=== PATIENT | female | born 1970 | race African-American/Black ===

== ENCOUNTER 2018-02-19 13:08 | Emergency (ER) | payer OTHER ==
[2018-02-19 13:37] LABS: Hematocrit 36.9 % (30.3-42.9); Hemoglobin 12.1 gm/dl (10.1-14.3); Mean Corpuscular HGB Conc 33 % (30-34); Mean Corpuscular Hemoglobin 29 pg (28-32); Mean Corpuscular Volume 89 fl (79-97); Platelet Count 343 K/mm3 (140-440); Red Blood Count 4.18 M/mm3 (3.65-5.03); Red Cell Distribution Width 13.1 % (13.2-15.2)
[2018-02-19] MEDS ORDERED: NORVASC PO ONE (17:17)
--- NOTE | 2018-02-19 17:19 | Emergency Department Report ---
ED General Adult HPI - General Chief complaint: High BP Stated complaint: HIGH BLOOD PRESSURE Time Seen by Provider: 02/19/18 17:07 Source: patient Mode of arrival: Ambulatory Limitations: No Limitations - History of Present Illness Initial comments: Patient presents to the emergency department for high blood pressure. The patient's blood pressure was 197/117 on ED arrival. Patient was at her primary care physician's office and because of elevated blood pressure she was told to come to the emergency department. Patient denies any chest pain, headache, numbness, weakness. She says she was recently changed from valsartan due to the recall to losartan and was told to increase her dosage from 50 mg a day to 100 mg a day which she has not been able to get yet. - Related Data Home Medications Medication Instructions Recorded Confirmed Last Taken Furosemide [Lasix TAB] 40 mg PO QDAY 02/27/16 02/27/16 Unknown Perindopril Erbumine [Aceon] 5 mg PO QDAY 02/27/16 02/27/16 Unknown metFORMIN [Glucophage] 425 mg PO QDAY 02/27/16 02/27/16 Unknown Allergies Allergy/AdvReac Type Severity Reaction Status Date / Time No Known Allergies Allergy Verified 02/27/16 06:25 ED Review of Systems ROS: Stated complaint: HIGH BLOOD PRESSURE Other details as noted in HPI Comment: All other systems reviewed and negative Constitutional: denies: chills, fever Eyes: denies: eye pain, eye discharge, vision change ENT: denies: ear pain, throat pain Respiratory: denies: cough, shortness of breath, wheezing Cardiovascular: denies: chest pain, palpitations Endocrine: no symptoms reported Gastrointestinal: denies: abdominal pain, nausea, diarrhea Genitourinary: denies: urgency, dysuria, discharge Musculoskeletal: denies: back pain, joint swelling, arthralgia Skin: denies: rash, lesions Neurological: denies: headache, weakness, paresthesias Psychiatric: denies: anxiety, depression Hematological/Lymphatic: denies: easy bleeding, easy bruising ED Past Medical Hx - Past Medical History Hx Hypertension: Yes Hx Diabetes: Yes - Surgical History Additional Surgical History: CSECTION X4 - Social History Smoking Status: Never Smoker Substance Use Type: None - Medications Home Medications: Home Medications Medication Instructions Recorded Confirmed Last Taken Type Furosemide [Lasix TAB] 40 mg PO QDAY 02/27/16 02/27/16 Unknown History Perindopril Erbumine [Aceon] 5 mg PO QDAY 02/27/16 02/27/16 Unknown History metFORMIN [Glucophage] 425 mg PO QDAY 02/27/16 02/27/16 Unknown History ED Physical Exam - General Limitations: No Limitations General appearance: alert, in no apparent distress - Head Head exam: Present: atraumatic, normocephalic - Eye Eye exam: Present: normal appearance - ENT ENT exam: Present: mucous membranes moist - Neck Neck exam: Present: normal inspection - Respiratory Respiratory exam: Present: normal lung sounds bilaterally. Absent: respiratory distress - Cardiovascular Cardiovascular Exam: Present: regular rate, normal rhythm. Absent: systolic murmur, diastolic murmur, rubs, gallop - GI/Abdominal GI/Abdominal exam: Present: soft, normal bowel sounds. Absent: distended, tenderness - Extremities Exam Extremities exam: Present: normal inspection - Back Exam Back exam: Present: normal inspection - Neurological Exam Neurological exam: Present: alert, oriented X3, CN II-XII intact. Absent: motor sensory deficit - Psychiatric Psychiatric exam: Present: normal affect, normal mood - Skin Skin exam: Present: warm, dry, intact, normal color. Absent: rash ED Course Vital Signs 02/19/18 13:12 Temperature 98.4 F Pulse Rate 87 Respiratory 18 Rate Blood Pressure 197/117 O2 Sat by Pulse 98 Oximetry ED Medical Decision Making - Lab Data Result diagrams: 02/19/18 13:24 02/19/18 13:24 - Medical Decision Making Discussed hypertension management with the patient The patient is asymptomatic hypertension with controlled as outpatient Patient encouraged to her losartan filled Critical care attestation.: If time is entered above; I have spent that time in minutes in the direct care of this critically ill patient, excluding procedure time. ED Disposition Clinical Impression: Hypertension Disposition: DC-01 TO HOME OR SELFCARE Is pt being admited?: No Does the pt Need Aspirin: No Condition: Stable Instructions: Hypertension (ED) Additional Instructions: return if worse Referrals: OSMIN LANGLEY [Primary Care Provider] - 3-5 Days Time of Disposition: 17:19
[2018-02-19 17:32] VITALS: BP 212/101
== END 2018-02-19 17:37 | disposition home or self-care (01) ==
LOC: ED 13:08
DX: I10 Essential (primary) hypertension (principal); E11.9 Type 2 diabetes mellitus without complications
CPT/HCPCS: 36415; 80048; 85027; 99283

== ENCOUNTER 2018-10-18 10:28 | Outpatient (CLI) | payer OTHER ==
[2018-10-18 11:18] LABS: Hematocrit 36.8 % (30.3-42.9); Hemoglobin 12.3 gm/dl (10.1-14.3); Mean Corpuscular HGB Conc 33 % (30-34); Mean Corpuscular Volume 90 fl (79-97); Platelet Count 369 K/mm3 (140-440); Red Blood Count 4.11 M/mm3 (3.65-5.03); Red Cell Distribution Width 13.7 % (13.2-15.2)
[2018-10-18 11:29] LABS: Albumin 3.4 g/dL (3.9-5); Calcium 8.8 mg/dL (8.4-10.2); Chol/HDL Ratio 4.36 %
== END 2018-10-18 10:29 | disposition home or self-care (01) ==
LOC: LAB 10:28
PROVIDERS: ATTEND Internal Medicine
DX: Z00.01 Encounter for general adult medical examination with abnormal findings (principal); E11.9 Type 2 diabetes mellitus without complications; I10 Essential (primary) hypertension; E78.2 Mixed hyperlipidemia
CPT/HCPCS: 36415; 80053; 80061; 82306; 82607; 83036; 84443; 85027

== ENCOUNTER 2019-03-25 10:38 | Outpatient (CLI) | payer OTHER ==
--- NOTE | 2019-03-26 10:25 | Mammography Report ---
DIGITAL SCREENING MAMMOGRAM WITH CAD, 03/25/2019 INDICATION: Routine screening mammography. TECHNIQUE: Digital bilateral 2D mammography was obtained in the craniocaudal and mediolateral obliq ue projections. This examination was interpreted with the benefit of Computer-Aided Detection analysi s. COMPARISON: None available. FINDINGS: Breast Density: The breasts are heterogeneously dense, which may obscure small masses. There is no evidence of dominant mass, suspicious calcifications or architectural distortion in eithe r breast. IMPRESSION: No mammographic evidence of malignancy. Follow up recommendation: Routine yearly BI-RADS Category 1: Negative. A "normal" or negative report should not discourage follow up or biopsy of a clinically significant f inding. A written summary of these findings will be mailed to the patient. The patient will be entered into a mammography reporting system which will generate a reminder letter for the patient's next appointmen t at the appropriate interval. The [employer] recommends yearly mammograms starting at age 40 and continuing as l carlos as a woman is in good health. Breast MRI is recommended for women with an approximate 20-25% or greater lifetime risk of breast cancer, including women with a strong family history of breast or ova nile cancer or who have been treated for Hodgkin's disease. Signer Name: Hilario Nuñez MD Signed: 03/26/2019 10:21 AM Workstation Name: [id number]
== END 2019-03-25 10:39 | disposition home or self-care (01) ==
LOC: MAMMO 10:38
PROVIDERS: ATTEND Internal Medicine
DX: Z12.31 Encounter for screening mammogram for malignant neoplasm of breast (principal); I10 Essential (primary) hypertension
CPT/HCPCS: 77067

== ENCOUNTER 2021-06-25 03:06 | Observation (INO) | payer OTHER ==
[2021-06-25] MEDS ORDERED: ASPIRIN 325 MG TAB PO ONE (04:12)
--- NOTE | 2021-06-25 04:13 | Emergency Department Report ---
ED Chest Pain HPI - General Chief Complaint: Chest Pain Stated Complaint: HIGH BP PUI?: No Time Seen by Provider: 06/25/21 04:09 Source: patient Mode of arrival: Ambulatory Limitations: No Limitations - History of Present Illness Initial Comments: Patient is a 51-year-old female that presents emergency room with complaints of chest pain. Patient states chest pain is a 8 out of 10. Patient states is in her left chest. Patient states is nonradiating. Patient denies shortness of breath. Patient states it started 1 day ago. Patient states chest pain is worsening. Patient also complains of elevated blood pressure. Patient states her blood pressure is 220/120 at home prior to leaving the house. Patient states she had a test at 130 and just before leaving she took Norvasc and losartan. Patient states that her blood pressure has never been this high. Patient states is normally controlled. Patient states her heart rate is also 125. Patient states she has a past medical history of hyperlipidemia, diabetes and hypertension. Patient denies recent travel. Patient denies recent international travel. Patient denies exposure to the novel coronavirus. Patient denies sick contacts. Patient denies fever and chills. Patient denies cough. Patient denies diarrhea. Patient denies coming in contact with anybody with symptoms of the novel coronavirus. MD Complaint: chest pain -: Sudden Onset: during rest Pain Location: left chest Pain Radiation: none Severity: severe Severity scale (0 -10): 8 Quality: sharp Consistency: constant Improves With: rest Worsens With: exertion re: denies: nausea, vomting, diaphoresis, dyspnea, sense of impending doom Other Symptoms: denies: cough, fever, syncope, rash, acid taste in mouth, leg swelling, palpitations, burping Treatments Prior to Arrival: aspirin Aspirin use within the Past 7 Days: (1) Yes - Related Data On Oral Contraceptives: No Home Medications Medication Instructions Recorded Confirmed Last Taken Furosemide [Lasix TAB] 40 mg PO QDAY 02/27/16 02/27/16 Unknown Perindopril Erbumine [Aceon] 5 mg PO QDAY 02/27/16 02/27/16 Unknown metFORMIN [Glucophage] 425 mg PO QDAY 02/27/16 02/27/16 Unknown Allergies Allergy/AdvReac Type Severity Reaction Status Date / Time No Known Allergies Allergy Verified 02/27/16 06:25 Heart Score - HEART Score History: Moderately suspicious EKG: Non-specific Age: 45-65 Risk factors: > 3 risk factors or hx of atherosclerotic disease Troponin: < normal limit HEART Score: 5 - EKG Read Time Time EKG Completed: 00:00 EKG Read Time: 00:00 ED Review of Systems ROS: Stated complaint: HIGH BP Other details as noted in HPI Constitutional: denies: chills, fever Eyes: denies: eye pain, eye discharge, vision change ENT: denies: ear pain, throat pain Respiratory: denies: cough, shortness of breath, wheezing Cardiovascular: as per HPI, chest pain. denies: palpitations Endocrine: no symptoms reported Gastrointestinal: denies: abdominal pain, nausea, diarrhea Genitourinary: denies: urgency, dysuria, discharge Musculoskeletal: denies: back pain, joint swelling, arthralgia Skin: denies: rash, lesions Neurological: denies: headache, weakness, paresthesias Psychiatric: denies: anxiety, depression Hematological/Lymphatic: denies: easy bleeding, easy bruising ED Past Medical Hx - Past Medical History Previous Medical History?: Yes Hx Hypertension: Yes Hx Diabetes: Yes Additional medical history: Hyperlipidemia - Surgical History Past Surgical History?: Yes Additional Surgical History: CSECTION X4 - Family History Family history: no significant - Social History Smoking Status: Never Smoker Substance Use Type: None - Medications Home Medications: Home Medications Medication Instructions Recorded Confirmed Last Taken Type Furosemide [Lasix TAB] 40 mg PO QDAY 02/27/16 02/27/16 Unknown History Perindopril Erbumine [Aceon] 5 mg PO QDAY 02/27/16 02/27/16 Unknown History metFORMIN [Glucophage] 425 mg PO QDAY 02/27/16 02/27/16 Unknown History ED Physical Exam - General Limitations: No Limitations General appearance: alert, in no apparent distress - Head Head exam: Present: atraumatic, normocephalic - Eye Eye exam: Present: normal appearance - ENT ENT exam: Present: mucous membranes moist - Neck Neck exam: Present: normal inspection - Respiratory Respiratory exam: Present: normal lung sounds bilaterally. Absent: respiratory distress - Cardiovascular Cardiovascular Exam: Present: regular rate, normal rhythm. Absent: systolic murmur, diastolic murmur, rubs, gallop - GI/Abdominal GI/Abdominal exam: Present: soft, normal bowel sounds - Extremities Exam Extremities exam: Present: normal inspection - Back Exam Back exam: Present: normal inspection - Neurological Exam Neurological exam: Present: alert, oriented X3 - Psychiatric Psychiatric exam: Present: normal affect, normal mood - Skin Skin exam: Present: warm, dry, intact, normal color. Absent: rash ED Course Vital Signs 06/25/21 06/25/21 06/25/21 03:11 03:12 03:50 Temperature 98.0 F Pulse Rate 121 H 113 H Respiratory 22 18 12 Rate Blood Pressure 222/114 O2 Sat by Pulse 98 99 100 Oximetry 06/25/21 06/25/21 06/25/21 04:00 04:22 04:30 Temperature Pulse Rate 118 H 109 H 109 H Respiratory 14 13 15 Rate Blood Pressure 154/87 154/87 160/87 O2 Sat by Pulse 100 100 100 Oximetry 06/25/21 06/25/21 05:00 05:30 Temperature Pulse Rate 103 H 99 H Respiratory 16 17 Rate Blood Pressure 163/90 139/83 O2 Sat by Pulse 100 96 Oximetry - Reevaluation(s) Reevaluation #1: I discussed all results with patient. I discussed plan of care with patient. Patient agrees with plan of care and admission. Patient to be admitted to the hospitalist service. 06/25/21 05:46 - Consultations Consultation #1: Hospitalist consulted for admission. Hospitalist to admit patient. 06/25/21 05:46 MELO score - Melo Score Age > 65: (0) No Aspirin use within the Past 7 Days: (0) No 3 or more CAD Risk Factors: (1) Yes 2 or more Angina events in past 24 hrs: (1) Yes Known CAD with more than 50% Stenosis: (0) No Elevated Cardiac Markers: (0) No ST Deviation Greater than 0.5mm: (0) No MELO Score: 2 ED Medical Decision Making - Lab Data Result diagrams: 06/25/21 04:16 06/25/21 04:16 - EKG Data -: EKG Interpreted by Me EKG shows normal: sinus rhythm, axis, intervals, QRS complexes, ST-T waves Rate: tachycardia - Radiology Data Radiology results: report reviewed, image reviewed interpreted by me: Chest x-ray: No pneumonia, no pneumothorax, no foreign body, no osseous findings, no acute findings XR chest 1V ap INDICATION / CLINICAL INFORMATION: Chest Pain. COMPARISON: 02/27/2016 FINDINGS: SUPPORT DEVICES: None. HEART /PULMONARY VASCULATURE: No significant abnormality. LUNGS / PLEURA: No significant pulmonary or pleural abnormality. No pneumothorax. ADDITIONAL FINDINGS: No significant additional findings. IMPRESSION: 1. No acute findings. - Medical Decision Making Patient is a 51-year-old female who presents emergency room with complaints of chest pain and elevated blood pressure. Patient's blood pressure was consistent with hypertensive urgency. Patient took her blood pressure medications just prior to arrival. Patient blood pressure came down after she self treated. Patient had chest pain x1 day. Patient has a past medical history of hypertension, hyperlipidemia, diabetes. Patient has an elevated heart score and is high risk. Patient had labs done which were essentially unremarkable. Patient troponin was negative. Patient had EKG which was negative for ST changes or acute findings. Patient had a chest x-ray which was negative for acute findings. Due to the patient's risk level, the patient will be admitted to the hospital service for further evaluation treatment and risk stratification and a inpatient rule out of ACS. Critical care time documented due to the multiple reassessments, prolonged time at the bedside, interpretation of diagnostics and labs. - Differential Diagnosis Chest pain, ACS, hypertensive emergency Critical Care Time: Yes Critical care time in (mins) excluding proc time.: 35 Critical care attestation.: If time is entered above; I have spent that time in minutes in the direct care of this critically ill patient, excluding procedure time. Critical Care Time: 35 minutes ED Disposition Clinical Impression: Hypertensive emergency Chest pain Qualifiers: Chest pain type: unspecified Qualified Code(s): R07.9 - Chest pain, unspecified Disposition: ADMITTED INPATIENT Is pt being admited?: Yes Does the pt Need Aspirin: No Condition: Stable Time of Disposition: 05:47
--- NOTE | 2021-06-25 04:52 | XRay Report ---
XR chest 1V ap INDICATION / CLINICAL INFORMATION: Chest Pain. COMPARISON: 02/27/2016 FINDINGS: SUPPORT DEVICES: None. HEART /PULMONARY VASCULATURE: No significant abnormality. LUNGS / PLEURA: No significant pulmonary or pleural abnormality. No pneumothorax. ADDITIONAL FINDINGS: No significant additional findings. IMPRESSION: 1. No acute findings. Signer Name: Geoffrey Zavala MD Signed: 06/25/2021 4:47 AM Workstation Name: [id number]
[2021-06-25 05:07] LABS: Basophils % (Auto) 0.3 % (0.0-1.8); Eosinophils # (Auto) 0.3 K/mm3 (0.0-0.4); Eosinophils % (Auto) 2.4 % (0.0-4.3); Hematocrit 34.9 % (30.3-42.9); Hemoglobin 10.9 gm/dl (10.1-14.3); Lymphocytes # (Auto) 1.4 K/mm3 (1.2-5.4); Lymphocytes % (Auto) 10.9 % (13.4-35.0); Mean Corpuscular HGB Conc 31 % (30-34); Mean Corpuscular Volume 89 fl (79-97); Monocytes # (Auto) 0.9 K/mm3 (0.0-0.8); Monocytes % (Auto) 7.6 % (0.0-7.3); Platelet Count 347 K/mm3 (140-440); Red Blood Count 3.94 M/mm3 (3.65-5.03); Red Cell Distribution Width 13.4 % (13.2-15.2)
[2021-06-25 05:17] LABS: INR 0.78 (0.87-1.13)
[2021-06-25 05:18] LABS: Partial Thromboplastin Time 21.2 Sec. (24.2-36.6)
[2021-06-25 05:27] LABS: Alanine Aminotransferase 14 units/L (7-56); Albumin 3.4 g/dL (3.9-5); BUN/Creatinine Ratio 21; Blood Urea Nitrogen 27 mg/dL (7-17); Calcium 8.6 mg/dL (8.4-10.2); Hemolysis Index 4
[2021-06-25] MEDS ORDERED: ACETAMINOPHEN 325 MG TAB PO PRN (08:17)
[2021-06-25] MEDS ORDERED: ONDANSETRON 4 MG/2 ML INJ IV PRN (08:17)
--- NOTE | 2021-06-25 08:17 | History and Physical Report ---
History of Present Illness Date of examination: 06/25/21 Date of admission: 06/25/21 05:48 Chief complaint: Chest pain History of present illness: 51-year-old female with past medical history of hyperlipidemia, diabetes and hypertension who presents to the emergency department with complaints of left- sided chest pain that is nonradiating and no associated shortness of breath. The patient reports the pain began approximately 2 days ago. Patient also complains of elevated blood pressure with 220/120 at home prior to leaving the house. Patient denies any nausea vomiting. No diaphoresis no cough or cold- like symptoms. No fever chills. Past History Past Medical History: diabetes, hypertension, hyperlipidemia Past Surgical History: No surgical history Social history: no significant social history Family history: no significant family history Medications and Allergies Allergies Allergy/AdvReac Type Severity Reaction Status Date / Time No Known Allergies Allergy Verified 02/27/16 06:25 Home Medications Medication Instructions Recorded Confirmed Last Taken Type Furosemide [Lasix TAB] 40 mg PO QDAY 02/27/16 02/27/16 Unknown History Perindopril Erbumine [Aceon] 5 mg PO QDAY 02/27/16 02/27/16 Unknown History metFORMIN [Glucophage] 425 mg PO QDAY 02/27/16 02/27/16 Unknown History Review of Systems All systems: negative Exam - Constitutional Vitals: Temp Pulse Resp BP Pulse Ox 98.2 F 93 H 19 142/76 97 06/25/21 06:38 06/25/21 07:00 06/25/21 07:00 06/25/21 07:00 06/25/21 07:00 General appearance: Present: no acute distress, well-nourished - EENT Eyes: Present: PERRL ENT: hearing intact, clear oral mucosa - Neck Neck: Present: supple, normal ROM - Respiratory Respiratory effort: normal Respiratory: bilateral: CTA - Cardiovascular Heart Sounds: Present: S1 & S2. Absent: rub, click - Extremities Extremities: pulses symmetrical, No edema Peripheral Pulses: within normal limits - Abdominal General gastrointestinal: Present: soft, non-tender, non-distended, normal bowel sounds Female genitourinary: Present: normal - Integumentary Integumentary: Present: clear, warm, dry - Musculoskeletal Musculoskeletal: gait normal, strength equal bilaterally - Psychiatric Psychiatric: appropriate mood/affect, intact judgment & insight - Neurologic Neurologic: CNII-XII intact, moves all extremities HEART Score - HEART Score EKG: Non-specific Age: 45-65 Risk factors: > 3 risk factors or hx of atherosclerotic disease Troponin: Troponin T < 0.010 ng/mL (0.00-0.029) 06/25/21 04:16 Troponin: < normal limit Results - Labs CBC & Chem 7: 06/25/21 04:16 06/25/21 04:16 Labs: Laboratory Last Values WBC 12.4 K/mm3 (4.5-11.0) H 06/25/21 04:16 RBC 3.94 M/mm3 (3.65-5.03) 06/25/21 04:16 Hgb 10.9 gm/dl (10.1-14.3) 06/25/21 04:16 Hct 34.9 % (30.3-42.9) 06/25/21 04:16 MCV 89 fl (79-97) 06/25/21 04:16 MCH 28 pg (28-32) 06/25/21 04:16 MCHC 31 % (30-34) 06/25/21 04:16 RDW 13.4 % (13.2-15.2) 06/25/21 04:16 Plt Count 347 K/mm3 (140-440) 06/25/21 04:16 Lymph % (Auto) 10.9 % (13.4-35.0) L 06/25/21 04:16 [place] % (Auto) 7.6 % (0.0-7.3) H 06/25/21 04:16 Eos % (Auto) 2.4 % (0.0-4.3) 06/25/21 04:16 Baso % (Auto) 0.3 % (0.0-1.8) 06/25/21 04:16 Lymph # (Auto) 1.4 K/mm3 (1.2-5.4) 06/25/21 04:16 [place] # (Auto) 0.9 K/mm3 (0.0-0.8) H 06/25/21 04:16 Eos # (Auto) 0.3 K/mm3 (0.0-0.4) 06/25/21 04:16 Baso # (Auto) 0.0 K/mm3 (0.0-0.1) 06/25/21 04:16 Seg Neutrophils % 78.8 % (40.0-70.0) H 06/25/21 04:16 Seg Neutrophils # 9.8 K/mm3 (1.8-7.7) H 06/25/21 04:16 PT 11.8 Sec. (12.2-14.9) L 06/25/21 04:16 INR 0.78 (0.87-1.13) L 06/25/21 04:16 APTT 21.2 Sec. (24.2-36.6) L 06/25/21 04:16 Sodium 134 mmol/L (137-145) L 06/25/21 04:16 Potassium 3.6 mmol/L (3.6-5.0) 06/25/21 04:16 Chloride 98.5 mmol/L (98-107) 06/25/21 04:16 Carbon Dioxide 22 mmol/L (22-30) 06/25/21 04:16 Anion Gap 17 mmol/L 06/25/21 04:16 BUN 27 mg/dL (7-17) H 06/25/21 04:16 Creatinine 1.3 mg/dL (0.6-1.2) H 06/25/21 04:16 Estimated GFR 43 ml/min 06/25/21 04:16 BUN/Creatinine Ratio 21 % 06/25/21 04:16 Glucose 95 mg/dL (65-100) 06/25/21 04:16 Calcium 8.6 mg/dL (8.4-10.2) 06/25/21 04:16 Total Bilirubin 0.20 mg/dL (0.1-1.2) 06/25/21 04:16 AST 17 units/L (5-40) 06/25/21 04:16 ALT 14 units/L (7-56) 06/25/21 04:16 Alkaline Phosphatase 62 units/L (35-129) 06/25/21 04:16 Troponin T < 0.010 ng/mL (0.00-0.029) 06/25/21 04:16 Total Protein 7.1 g/dL (6.3-8.2) 06/25/21 04:16 Albumin 3.4 g/dL (3.9-5) L 06/25/21 04:16 Albumin/Globulin Ratio 0.9 % 06/25/21 04:16 Assessment and Plan Assessment and plan: Chest pain. Accelerated hypertension. Hyperlipidemia Diabetes mellitus type 2 Acute kidney injury secondary to vasomotor nephropathy. 06/25/2021. Patient will be admitted to the chest pain pathway. We will follow-up serial EKGs and troponin levels. Initial EKG shows no ST-T wave changes and initial troponin negative. Consult cardiology for further evaluation. Check echocardiogram. Continue home medications for hypertension. Hold Glucophage and start sliding scale insulin and Accu-Cheks before every meal nightly. Patient has some mild renal insufficiency with likely acute kidney injury secondary to vasomotor nephropathy/dehydration. Normal saline IV fluid and follow-up BMP in the morning
[2021-06-25] MEDS ORDERED: MORPHINE 4 MG/1 ML INJ IV PRN (08:18)
[2021-06-25] MEDS ORDERED: DEXTROSE 50% IN WATER (25GM) 50 ML SYRINGE IV PRN (08:18)
[2021-06-25 10:33] LABS: Basophils % (Auto) 0.3 % (0.0-1.8); Eosinophils # (Auto) 0.1 K/mm3 (0.0-0.4); Eosinophils % (Auto) 1.2 % (0.0-4.3); Hematocrit 31.1 % (30.3-42.9); Lymphocytes # (Auto) 1.6 K/mm3 (1.2-5.4); Lymphocytes % (Auto) 16.1 % (13.4-35.0); Mean Corpuscular HGB Conc 32 % (30-34); Mean Corpuscular Volume 88 fl (79-97); Monocytes # (Auto) 0.7 K/mm3 (0.0-0.8); Monocytes % (Auto) 7.6 % (0.0-7.3); Platelet Count 330 K/mm3 (140-440); Red Blood Count 3.52 M/mm3 (3.65-5.03); Red Cell Distribution Width 13.1 % (13.2-15.2)
[2021-06-25 10:57] LABS: Calcium 8.2 mg/dL (8.4-10.2)
[2021-06-25] MEDS: INSULIN REGULAR, HUMAN 100 UNITS/1 ML SUB-Q SCH ×3 (13:44→21:59)
[2021-06-25] MEDS: HYDROcodone/ACETAMINOPHEN 5-325 MG TAB PO PRN ×2 (13:45→18:33)
[2021-06-25] MEDS: HEPARIN 5,000 UNIT/1 ML VIAL SUB-Q SCH ×2 (13:45→21:59)
[2021-06-25] MEDS: SODIUM CHLORIDE 0.9% 1000 ML 1,000 ML IV SCH ×2 (13:45→21:50)
--- NOTE | 2021-06-25 16:02 | Consultation ---
History of Present Illness Consult date: 06/25/21 Requesting physician: EDEN DANIEL Consult reason: chest pain History of present illness: Pt is a 51-year-old female with past medical history of HTN, HLD, and DM2, who presented with complaints of left-sided chest pain x 1 day prior to arrival. Pt describes pain as sharp and constant. Worse with exertion. No relieving factors. Pt denies any additional associated sx. Of note, BP markedly elevated. SBP > 200mmHg at home per pt report. She states her BP is typically well-controlled. Pt has been seen by our group during a previous hospitalization in 2019. She notably had a normal echo and negative stress test at that time. Trop neg x 2 thus far this admission. ECG reveals no acute ischemic changes. Echo 03/2019: EF 55-60%, impaired relaxation, no significant valvular abnormalities. Lexiscan stress MPI 03/2019: no evidence of ischemia, EF 63%. Past History Past Medical History: diabetes, hypertension, hyperlipidemia Past Surgical History: No surgical history Social history: denies: smoking, alcohol abuse Family history: hypertension. denies: CAD Medications and Allergies Allergies Allergy/AdvReac Type Severity Reaction Status Date / Time No Known Allergies Allergy Verified 02/27/16 06:25 Home Medications Medication Instructions Recorded Confirmed Last Taken Type Furosemide [Lasix TAB] 40 mg PO QDAY 02/27/16 02/27/16 Unknown History Perindopril Erbumine [Aceon] 5 mg PO QDAY 02/27/16 02/27/16 Unknown History metFORMIN [Glucophage] 425 mg PO QDAY 02/27/16 02/27/16 Unknown History Active Meds: Active Medications Acetaminophen (Acetaminophen 325 Mg Tab) 650 mg PO Q4H PRN PRN Reason: Pain MILD(1-3)/Fever >100.5/HANLEY Hydrocodone Bitart/Acetaminophen (Hydrocodone/Acetaminophen 5-325 Mg Tab) 2 each PO Q6H PRN PRN Reason: Pain, Moderate (4-6) Last Admin: 06/25/21 13:45 Dose: 2 each Documented by: Dextrose (Dextrose 50% In Water (25gm) 50 Ml Syringe) 50 ml IV Q30MIN PRN; Protocol PRN Reason: Hypoglycemia Heparin Sodium (Porcine) (Heparin 5,000 Unit/1 Ml Vial) 5,000 unit SUB-Q Q8HR KING Last Admin: 06/25/21 13:45 Dose: 5,000 unit Documented by: Sodium Chloride (Nacl 0.9% 1000 Ml) 1,000 mls @ 75 mls/hr IV DIRECT [facility] Last Admin: 06/25/21 13:45 Dose: 75 mls/hr Documented by: Insulin Human Regular (Insulin Regular, Human 100 Units/1 Ml) 0 units SUB-Q Q6H [facility]; Protocol Last Admin: 06/25/21 13:44 Dose: Not Given Documented by: Morphine Sulfate (Morphine 4 Mg/1 Ml Inj) 2 mg IV Q4H PRN PRN Reason: Pain , Severe (7-10) Ondansetron HCl (Ondansetron 4 Mg/2 Ml Inj) 4 mg IV Q8H PRN PRN Reason: Nausea And Vomiting Sodium Chloride (Sodium Chloride 0.9% 10 Ml Flush Syringe) 10 ml IV BID [facility] Last Admin: 06/25/21 13:44 Dose: Not Given Documented by: Sodium Chloride (Sodium Chloride 0.9% 10 Ml Flush Syringe) 10 ml IV PRN PRN PRN Reason: LINE FLUSH Tramadol HCl (Tramadol 50 Mg Tab) 50 mg PO Q6H PRN PRN Reason: Pain, Moderate (4-6) Review of Systems Constitutional: no fever, no chills Ears, nose, mouth and throat: no nasal congestion, no sore throat Cardiovascular: chest pain, high blood pressure, no orthopnea, no palpitations, no rapid/irregular heart beat, no edema, no syncope, no lightheadedness, no shortness of breath Respiratory: no cough, no shortness of breath Gastrointestinal: no abdominal pain, no nausea, no vomiting Genitourinary Female: no dysuria Musculoskeletal: no myalgias Integumentary: no rash, no wounds Neurological: no numbness, no tingling, no seizures, no syncope Endocrine: no cold intolerance, no heat intolerance Hematologic/Lymphatic: no easy bruising, no easy bleeding Allergic/Immunologic: no anaphylaxis Physical Examination Last Vital Signs Temp 97.9 F 06/25/21 15:32 Pulse 114 H 06/25/21 15:32 Resp 18 06/25/21 15:32 BP 119/60 06/25/21 15:32 Pulse Ox 95 06/25/21 15:32 General appearance: no acute distress HEENT: Positive: EOMI, Normocephaly Neck: Positive: neck supple, trachea midline Cardiac: Positive: Reg Rate and Rhythm, S1/S2 Lungs: Positive: clear to auscultation Neuro: Positive: Grossly Intact Abdomen: Positive: Soft. Negative: Tender Skin: Negative: Rash Musculoskeletal: No Pain Extremities: Present: lower extr. pulses. Absent: edema Results 06/25/21 10:19 06/25/21 10:19 Cardiac Enzymes 06/25/21 Range/Units 04:16 AST 17 (5-40) units/L Coagulation 06/25/21 Range/Units 04:16 PT 11.8 L (12.2-14.9) Sec. INR 0.78 L (0.87-1.13) APTT 21.2 L (24.2-36.6) Sec. CBC 06/25/21 06/25/21 Range/Units 04:16 10:19 WBC 12.4 H 9.8 (4.5-11.0) K/mm3 RBC 3.94 3.52 L (3.65-5.03) M/mm3 Hgb 10.9 10.0 L (10.1-14.3) gm/dl Hct 34.9 31.1 (30.3-42.9) % Plt Count 347 330 (140-440) K/mm3 Lymph # (Auto) 1.4 1.6 (1.2-5.4) K/mm3 [place] # (Auto) 0.9 H 0.7 (0.0-0.8) K/mm3 Eos # (Auto) 0.3 0.1 (0.0-0.4) K/mm3 Baso # (Auto) 0.0 0.0 (0.0-0.1) K/mm3 Comprehensive Metabolic Panel 06/25/21 06/25/21 Range/Units 04:16 10:19 Sodium 134 L 138 (137-145) mmol/L Potassium 3.6 4.3 (3.6-5.0) mmol/L Chloride 98.5 104.7 (98-107) mmol/L Carbon Dioxide 22 22 (22-30) mmol/L BUN 27 H 25 H (7-17) mg/dL Creatinine 1.3 H 1.2 (0.6-1.2) mg/dL Glucose 95 101 H (65-100) mg/dL Calcium 8.6 8.2 L (8.4-10.2) mg/dL AST 17 (5-40) units/L ALT 14 (7-56) units/L Alkaline Phosphatase 62 (35-129) units/L Total Protein 7.1 (6.3-8.2) g/dL Albumin 3.4 L (3.9-5) g/dL - Imaging and Cardiology Echo: report reviewed EKG: report reviewed, image reviewed - EKG Interpretation EKG: no acute changes EKG interpretations - EKG Sinus rhythms and dysrhythmias: sinus rhythm Assessment and Plan Echo reviewed - EF 55-60%, mild diastolic dysfunction. Plan for treadmill stress test on Sunday. If pt unable to perform, will convert to Lexiscan MPI. Will optimize antihypertensive regimen. Initiate statin. Pt seen in conjunction with Dr. Garcia, who agrees with the assessment and plan of care. - Patient Problems (1) Chest pain Current Visit: Yes Status: Acute Qualifiers: Qualified Code(s): R07.9 - Chest pain, unspecified (2) Hypertensive urgency Current Visit: Yes Status: Acute (3) HLD (hyperlipidemia) Current Visit: Yes Status: Chronic Qualifiers: Hyperlipidemia type: mixed hyperlipidemia Qualified Code(s): E78.2 - Mixed hyperlipidemia (4) DM2 (diabetes mellitus, type 2) Current Visit: Yes Status: Chronic
[2021-06-25] MEDS ORDERED: amLODIPine 5 MG TAB PO SCH (17:00)
[2021-06-26] MEDS: INSULIN REGULAR, HUMAN 100 UNITS/1 ML SUB-Q SCH ×5 (05:06→21:21)
[2021-06-26] MEDS: HEPARIN 5,000 UNIT/1 ML VIAL SUB-Q SCH ×3 (05:55→21:21)
[2021-06-26 06:27] LABS: Basophils % (Auto) 0.4 % (0.0-1.8); Eosinophils # (Auto) 0.4 K/mm3 (0.0-0.4); Eosinophils % (Auto) 4.8 % (0.0-4.3); Hematocrit 30.8 % (30.3-42.9); Lymphocytes # (Auto) 2.6 K/mm3 (1.2-5.4); Lymphocytes % (Auto) 30.7 % (13.4-35.0); Mean Corpuscular HGB Conc 33 % (30-34); Mean Corpuscular Volume 89 fl (79-97); Monocytes # (Auto) 0.7 K/mm3 (0.0-0.8); Monocytes % (Auto) 7.9 % (0.0-7.3); Platelet Count 332 K/mm3 (140-440); Red Blood Count 3.45 M/mm3 (3.65-5.03); Red Cell Distribution Width 13.5 % (13.2-15.2)
[2021-06-26 06:49] LABS: Calcium 8.2 mg/dL (8.4-10.2)
[2021-06-26] MEDS: LOSARTAN 50 MG TAB PO SCH (09:14)
[2021-06-26] MEDS: SODIUM CHLORIDE 0.9% 1000 ML 1,000 ML IV SCH (09:26)
[2021-06-26] MEDS ORDERED: LOSARTAN 50 MG TAB PO SCH (10:00)
[2021-06-26] MEDS ORDERED: amLODIPine 5 MG TAB PO SCH (10:00)
--- NOTE | 2021-06-26 10:24 | Progress Note ---
Assessment and Plan Assessment and plan: Chest pain. Accelerated hypertension. Hyperlipidemia Diabetes mellitus type 2 Acute kidney injury secondary to vasomotor nephropathy. 06/25/2021. Patient will be admitted to the chest pain pathway. We will follow-up serial EKGs and troponin levels. Initial EKG shows no ST-T wave changes and initial troponin negative. Consult cardiology for further evaluation. Check echocardiogram. Continue home medications for hypertension. Hold Glucophage and start sliding scale insulin and Accu-Cheks before every meal nightly. Patient has some mild renal insufficiency with likely acute kidney injury secondary to vasomotor nephropathy/dehydration. Normal saline IV fluid and follow-up BMP in the morning 06/26/2021. Creatinine has improved to near baseline. Troponins remain negative. Echocardiogram reveals left ventricular size and wall thickness is normal. LVEF is 55-60%. Mild diastolic dysfunction. Continue SSRI and Accu- Cheks. N.p.o. after midnight for stress test in a.m. History Interval history: No new issues overnight. No complaints of chest pain Hospitalist Physical - Constitutional Vitals: Temp Pulse Resp BP Pulse Ox 98.4 F 94 H 19 168/88 96 06/26/21 07:45 06/26/21 07:45 06/26/21 07:45 06/26/21 09:14 06/26/21 07:45 General appearance: Present: no acute distress - EENT Eyes: Present: PERRL, EOM intact ENT: hearing intact, clear oral mucosa, dentition normal - Neck Neck: Present: supple, normal ROM - Respiratory Respiratory effort: normal Respiratory: bilateral: CTA - Cardiovascular Rhythm: regular Heart Sounds: Present: S1 & S2. Absent: gallop, rub - Extremities Extremities: no ischemia, No edema, Full ROM - Abdominal General gastrointestinal: soft, non-tender, non-distended, normal bowel sounds - Integumentary Integumentary: Present: clear, warm, dry - Neurologic Neurologic: CNII-XII intact, moves all extremities HEART Score - HEART Score EKG: Non-specific Age: 45-65 Risk factors: > 3 risk factors or hx of atherosclerotic disease Troponin: Troponin T < 0.010 ng/mL (0.00-0.029) 06/25/21 10:19 Troponin: < normal limit Results - Labs CBC & Chem 7: 06/26/21 06:01 06/26/21 06:01 Labs: Laboratory Last Values WBC 8.4 K/mm3 (4.5-11.0) 06/26/21 06:01 RBC 3.45 M/mm3 (3.65-5.03) L 06/26/21 06:01 Hgb 10.0 gm/dl (10.1-14.3) L 06/26/21 06:01 Hct 30.8 % (30.3-42.9) 06/26/21 06:01 MCV 89 fl (79-97) 06/26/21 06:01 MCH 29 pg (28-32) 06/26/21 06:01 MCHC 33 % (30-34) 06/26/21 06:01 RDW 13.5 % (13.2-15.2) 06/26/21 06:01 Plt Count 332 K/mm3 (140-440) 06/26/21 06:01 Lymph % (Auto) 30.7 % (13.4-35.0) 06/26/21 06:01 [place] % (Auto) 7.9 % (0.0-7.3) H 06/26/21 06:01 Eos % (Auto) 4.8 % (0.0-4.3) H 06/26/21 06:01 Baso % (Auto) 0.4 % (0.0-1.8) 06/26/21 06:01 Lymph # (Auto) 2.6 K/mm3 (1.2-5.4) 06/26/21 06:01 [place] # (Auto) 0.7 K/mm3 (0.0-0.8) 06/26/21 06:01 Eos # (Auto) 0.4 K/mm3 (0.0-0.4) 06/26/21 06:01 Baso # (Auto) 0.0 K/mm3 (0.0-0.1) 06/26/21 06:01 Seg Neutrophils % 56.2 % (40.0-70.0) 06/26/21 06:01 Seg Neutrophils # 4.7 K/mm3 (1.8-7.7) 06/26/21 06:01 PT 11.8 Sec. (12.2-14.9) L 06/25/21 04:16 INR 0.78 (0.87-1.13) L 06/25/21 04:16 APTT 21.2 Sec. (24.2-36.6) L 06/25/21 04:16 D-Dimer 330.61 ng/mlDDU (0-234) H 06/25/21 10:37 Sodium 141 mmol/L (137-145) 06/26/21 06:01 Potassium 4.1 mmol/L (3.6-5.0) 06/26/21 06:01 Chloride 108.9 mmol/L (98-107) H 06/26/21 06:01 Carbon Dioxide 24 mmol/L (22-30) 06/26/21 06:01 Anion Gap 12 mmol/L 06/26/21 06:01 BUN 20 mg/dL (7-17) H 06/26/21 06:01 Creatinine 1.2 mg/dL (0.6-1.2) 06/26/21 06:01 Estimated GFR 47 ml/min 06/26/21 06:01 BUN/Creatinine Ratio 17 % 06/26/21 06:01 Glucose 77 mg/dL (65-100) 06/26/21 06:01 POC Glucose 68 mg/dL (70-105) L 06/26/21 07:43 Calcium 8.2 mg/dL (8.4-10.2) L 06/26/21 06:01 Total Bilirubin 0.20 mg/dL (0.1-1.2) 06/25/21 04:16 AST 17 units/L (5-40) 06/25/21 04:16 ALT 14 units/L (7-56) 06/25/21 04:16 Alkaline Phosphatase 62 units/L (35-129) 06/25/21 04:16 Troponin T < 0.010 ng/mL (0.00-0.029) 06/25/21 10:19 Total Protein 7.1 g/dL (6.3-8.2) 06/25/21 04:16 Albumin 3.4 g/dL (3.9-5) L 06/25/21 04:16 Albumin/Globulin Ratio 0.9 % 06/25/21 04:16 Schneider/IV: Voiding Method Toilet Active Medications - Current Medications Current Medications: Generic Name Dose Route Start Last Admin Trade Name Freq PRN Reason Stop Dose Admin Acetaminophen 650 mg 06/25/21 08:17 Acetaminophen 325 Mg Tab PO Q4H PRN Pain MILD(1-3)/Fever >100.5/HANLEY Hydrocodone Bitart/Acetaminophen 2 each 06/25/21 08:18 06/25/21 18:33 Hydrocodone/Acetaminophen 5-325 Mg Tab PO 2 each Q6H PRN Administration Pain, Moderate (4-6) Amlodipine Besylate 5 mg 06/26/21 10:00 06/26/21 09:14 Amlodipine 5 Mg Tab PO 5 mg QDAY KING Administration Atorvastatin Calcium 20 mg 06/25/21 22:00 06/25/21 21:59 Atorvastatin 20 Mg Tab PO 20 mg QHS KING Administration Dextrose 50 ml 06/25/21 08:18 Dextrose 50% In Water (25gm) 50 Ml Syringe IV Q30MIN PRN Hypoglycemia Protocol Heparin Sodium (Porcine) 5,000 unit 06/25/21 14:00 06/26/21 05:55 Heparin 5,000 Unit/1 Ml Vial SUB-Q 5,000 unit Q8HR KING Administration Sodium Chloride 1,000 mls @ 75 mls/hr 06/25/21 08:30 06/26/21 09:26 Nacl 0.9% 1000 Ml IV 75 mls/hr DIRECT KING Administration Insulin Human Regular 0 units 06/25/21 09:00 06/26/21 09:17 Insulin Regular, Human 100 Units/1 Ml SUB-Q Not Given Q6H KING Protocol Losartan Potassium 100 mg 06/26/21 10:00 06/26/21 09:14 Losartan 50 Mg Tab PO 100 mg QDAY KING Administration Morphine Sulfate 2 mg 06/25/21 08:18 Morphine 4 Mg/1 Ml Inj IV Q4H PRN Pain , Severe (7-10) Ondansetron HCl 4 mg 06/25/21 08:17 Ondansetron 4 Mg/2 Ml Inj IV Q8H PRN Nausea And Vomiting Sodium Chloride 10 ml 06/25/21 10:00 06/25/21 22:01 Sodium Chloride 0.9% 10 Ml Flush Syringe IV 10 ml BID KING Administration Sodium Chloride 10 ml 06/25/21 08:17 Sodium Chloride 0.9% 10 Ml Flush Syringe IV PRN PRN LINE FLUSH Tramadol HCl 50 mg 06/25/21 08:17 Tramadol 50 Mg Tab PO Q6H PRN Pain, Moderate (4-6)
[2021-06-26] MEDS: traMADol 50 MG TAB PO PRN (15:00)
--- NOTE | 2021-06-26 16:15 | Progress Note ---
Assessment and Plan Echo reviewed - EF 55-60%, mild diastolic dysfunction. Plan for treadmill stress test in AM. If pt unable to perform, will convert to Lexiscan MPI. May titrate up Amlodipine as needed for BP optimization. Pt seen in conjunction with Dr. Garcia, who agrees with the assessment and plan of care. - Patient Problems (1) Chest pain Current Visit: Yes Status: Acute Qualifiers: Qualified Code(s): R07.9 - Chest pain, unspecified (2) Hypertensive urgency Current Visit: Yes Status: Acute (3) HLD (hyperlipidemia) Current Visit: Yes Status: Chronic Qualifiers: Hyperlipidemia type: mixed hyperlipidemia Qualified Code(s): E78.2 - Mixed hyperlipidemia (4) DM2 (diabetes mellitus, type 2) Current Visit: Yes Status: Chronic Subjective Date of service: 06/26/21 Principal diagnosis: Chest Pain Interval history: Resting comfortably in bed. BP high this AM. SR low 100s on tele, no events. Objective Last Vital Signs Temp 98.3 F 06/26/21 16:03 Pulse 85 06/26/21 16:03 Resp 18 06/26/21 16:03 BP 141/68 06/26/21 16:03 Pulse Ox 100 06/26/21 16:03 - Physical Examination General: No Apparent Distress HEENT: Positive: EOMI, Normocephaly Neck: Positive: neck supple, trachea midline Cardiac: Positive: Reg Rate and Rhythm, S1/S2 Lungs: Positive: clear to auscultation Neuro: Positive: Grossly Intact Abdomen: Positive: Soft. Negative: Tender Skin: Negative: Rash Musculoskeletal: No Pain Extremities: Present: lower extr. pulses. Absent: edema - Labs and Meds CBC 06/26/21 Range/Units 06:01 WBC 8.4 (4.5-11.0) K/mm3 RBC 3.45 L (3.65-5.03) M/mm3 Hgb 10.0 L (10.1-14.3) gm/dl Hct 30.8 (30.3-42.9) % Plt Count 332 (140-440) K/mm3 Lymph # (Auto) 2.6 (1.2-5.4) K/mm3 [place] # (Auto) 0.7 (0.0-0.8) K/mm3 Eos # (Auto) 0.4 (0.0-0.4) K/mm3 Baso # (Auto) 0.0 (0.0-0.1) K/mm3 Comprehensive Metabolic Panel 06/26/21 Range/Units 06:01 Sodium 141 (137-145) mmol/L Potassium 4.1 (3.6-5.0) mmol/L Chloride 108.9 H (98-107) mmol/L Carbon Dioxide 24 (22-30) mmol/L BUN 20 H (7-17) mg/dL Creatinine 1.2 (0.6-1.2) mg/dL Glucose 77 (65-100) mg/dL Calcium 8.2 L (8.4-10.2) mg/dL - Imaging and Cardiology EKG: report reviewed, image reviewed Exercise stress test: pending Echo: report reviewed - Telemetry EKG Rhythm: Sinus Tachycardia - EKG Sinus rhythms and dysrhythmias: sinus rhythm
[2021-06-26] MEDS: HYDROcodone/ACETAMINOPHEN 5-325 MG TAB PO PRN (21:24)
[2021-06-27] MEDS: SODIUM CHLORIDE 0.9% 1000 ML 1,000 ML IV SCH ×2 (01:57→20:44)
[2021-06-27] MEDS: INSULIN REGULAR, HUMAN 100 UNITS/1 ML SUB-Q SCH ×4 (05:51→22:04)
[2021-06-27] MEDS: HEPARIN 5,000 UNIT/1 ML VIAL SUB-Q SCH ×3 (06:32→22:01)
[2021-06-27] MEDS ORDERED: REGADENOSON 0.4 MG/5 ML INJ IV ONE (07:17)
--- NOTE | 2021-06-27 09:10 | Progress Note ---
Assessment and Plan Assessment and plan: Chest pain. Accelerated hypertension. Hyperlipidemia Diabetes mellitus type 2 Acute kidney injury secondary to vasomotor nephropathy. 06/25/2021. Patient will be admitted to the chest pain pathway. We will follow-up serial EKGs and troponin levels. Initial EKG shows no ST-T wave changes and initial troponin negative. Consult cardiology for further evaluation. Check echocardiogram. Continue home medications for hypertension. Hold Glucophage and start sliding scale insulin and Accu-Cheks before every meal nightly. Patient has some mild renal insufficiency with likely acute kidney injury secondary to vasomotor nephropathy/dehydration. Normal saline IV fluid and follow-up BMP in the morning 06/26/2021. Creatinine has improved to near baseline. Troponins remain negative. Echocardiogram reveals left ventricular size and wall thickness is normal. LVEF is 55-60%. Mild diastolic dysfunction. Continue SSRI and Accu- Cheks. N.p.o. after midnight for stress test in a.m. 06/27/2021. Echocardiogram reveals EF 55-60% with mild diastolic dysfunction. Patient to undergo stress test this morning. BP still elevated this morning. We will increase amlodipine to 10 mg daily. Continue Cozaar 100 mg p.o. daily. Continue SSRI and Accu-Cheks. History Interval history: No new issues overnight. No complaints of chest pain Hospitalist Physical - Constitutional Vitals: Temp Pulse Resp BP Pulse Ox 98.4 F 92 H 16 162/84 98 06/27/21 03:48 06/27/21 03:48 06/27/21 03:48 06/27/21 03:48 06/27/21 03:48 General appearance: Present: no acute distress - EENT Eyes: Present: PERRL, EOM intact ENT: hearing intact, clear oral mucosa, dentition normal - Neck Neck: Present: supple, normal ROM - Respiratory Respiratory effort: normal Respiratory: bilateral: CTA - Cardiovascular Rhythm: regular Heart Sounds: Present: S1 & S2. Absent: gallop, rub - Extremities Extremities: no ischemia, No edema, Full ROM - Abdominal General gastrointestinal: soft, non-tender, non-distended, normal bowel sounds - Integumentary Integumentary: Present: clear, warm, dry - Neurologic Neurologic: CNII-XII intact, moves all extremities HEART Score - HEART Score EKG: Non-specific Age: 45-65 Risk factors: > 3 risk factors or hx of atherosclerotic disease Troponin: Troponin T < 0.010 ng/mL (0.00-0.029) 06/25/21 10:19 Troponin: < normal limit Results - Labs CBC & Chem 7: 06/26/21 06:01 06/26/21 06:01 Labs: Laboratory Last Values WBC 8.4 K/mm3 (4.5-11.0) 06/26/21 06:01 RBC 3.45 M/mm3 (3.65-5.03) L 06/26/21 06:01 Hgb 10.0 gm/dl (10.1-14.3) L 06/26/21 06:01 Hct 30.8 % (30.3-42.9) 06/26/21 06:01 MCV 89 fl (79-97) 06/26/21 06:01 MCH 29 pg (28-32) 06/26/21 06:01 MCHC 33 % (30-34) 06/26/21 06:01 RDW 13.5 % (13.2-15.2) 06/26/21 06:01 Plt Count 332 K/mm3 (140-440) 06/26/21 06:01 Lymph % (Auto) 30.7 % (13.4-35.0) 06/26/21 06:01 [place] % (Auto) 7.9 % (0.0-7.3) H 06/26/21 06:01 Eos % (Auto) 4.8 % (0.0-4.3) H 06/26/21 06:01 Baso % (Auto) 0.4 % (0.0-1.8) 06/26/21 06:01 Lymph # (Auto) 2.6 K/mm3 (1.2-5.4) 06/26/21 06:01 [place] # (Auto) 0.7 K/mm3 (0.0-0.8) 06/26/21 06:01 Eos # (Auto) 0.4 K/mm3 (0.0-0.4) 06/26/21 06:01 Baso # (Auto) 0.0 K/mm3 (0.0-0.1) 06/26/21 06:01 Seg Neutrophils % 56.2 % (40.0-70.0) 06/26/21 06:01 Seg Neutrophils # 4.7 K/mm3 (1.8-7.7) 06/26/21 06:01 PT 11.8 Sec. (12.2-14.9) L 06/25/21 04:16 INR 0.78 (0.87-1.13) L 06/25/21 04:16 APTT 21.2 Sec. (24.2-36.6) L 06/25/21 04:16 D-Dimer 330.61 ng/mlDDU (0-234) H 06/25/21 10:37 Sodium 141 mmol/L (137-145) 06/26/21 06:01 Potassium 4.1 mmol/L (3.6-5.0) 06/26/21 06:01 Chloride 108.9 mmol/L (98-107) H 06/26/21 06:01 Carbon Dioxide 24 mmol/L (22-30) 06/26/21 06:01 Anion Gap 12 mmol/L 06/26/21 06:01 BUN 20 mg/dL (7-17) H 06/26/21 06:01 Creatinine 1.2 mg/dL (0.6-1.2) 06/26/21 06:01 Estimated GFR 47 ml/min 06/26/21 06:01 BUN/Creatinine Ratio 17 % 06/26/21 06:01 Glucose 77 mg/dL (65-100) 06/26/21 06:01 POC Glucose 148 mg/dL (70-105) H 06/26/21 20:37 Calcium 8.2 mg/dL (8.4-10.2) L 06/26/21 06:01 Total Bilirubin 0.20 mg/dL (0.1-1.2) 06/25/21 04:16 AST 17 units/L (5-40) 06/25/21 04:16 ALT 14 units/L (7-56) 06/25/21 04:16 Alkaline Phosphatase 62 units/L (35-129) 06/25/21 04:16 Troponin T < 0.010 ng/mL (0.00-0.029) 06/25/21 10:19 Total Protein 7.1 g/dL (6.3-8.2) 06/25/21 04:16 Albumin 3.4 g/dL (3.9-5) L 06/25/21 04:16 Albumin/Globulin Ratio 0.9 % 06/25/21 04:16 Schneider/IV: Voiding Method Toilet Active Medications - Current Medications Current Medications: Generic Name Dose Route Start Last Admin Trade Name Freq PRN Reason Stop Dose Admin Acetaminophen 650 mg 06/25/21 08:17 Acetaminophen 325 Mg Tab PO Q4H PRN Pain MILD(1-3)/Fever >100.5/HANLEY Hydrocodone Bitart/Acetaminophen 2 each 06/25/21 08:18 06/26/21 21:24 Hydrocodone/Acetaminophen 5-325 Mg Tab PO 2 each Q6H PRN Administration Pain, Moderate (4-6) Amlodipine Besylate 5 mg 06/26/21 10:00 06/26/21 09:14 Amlodipine 5 Mg Tab PO 5 mg QDAY KING Administration Atorvastatin Calcium 40 mg 06/26/21 22:00 06/26/21 21:21 Atorvastatin 40 Mg Tab PO 40 mg QHS KING Administration Cholecalciferol 5,000 unit 06/27/21 10:00 Cholecalciferol (Vit D3) 5,000 Unit Tab PO QDAY KING Dextrose 50 ml 06/25/21 08:18 Dextrose 50% In Water (25gm) 50 Ml Syringe IV Q30MIN PRN Hypoglycemia Protocol Heparin Sodium (Porcine) 5,000 unit 06/25/21 14:00 06/27/21 06:32 Heparin 5,000 Unit/1 Ml Vial SUB-Q 5,000 unit Q8HR KING Administration Sodium Chloride 1,000 mls @ 75 mls/hr 06/25/21 08:30 06/27/21 01:57 Nacl 0.9% 1000 Ml IV 75 mls/hr DIRECT KING Administration Insulin Human Regular 0 units 06/25/21 09:00 06/27/21 05:51 Insulin Regular, Human 100 Units/1 Ml SUB-Q Not Given Q6H KING Protocol Losartan Potassium 100 mg 06/26/21 10:00 06/26/21 09:14 Losartan 50 Mg Tab PO 100 mg QDAY KING Administration Metformin HCl 850 mg 06/27/21 10:00 Metformin 850 Mg Tab PO QDAY KING Morphine Sulfate 2 mg 06/25/21 08:18 Morphine 4 Mg/1 Ml Inj IV Q4H PRN Pain , Severe (7-10) Ondansetron HCl 4 mg 06/25/21 08:17 Ondansetron 4 Mg/2 Ml Inj IV Q8H PRN Nausea And Vomiting Sodium Chloride 10 ml 06/25/21 10:00 06/26/21 21:22 Sodium Chloride 0.9% 10 Ml Flush Syringe IV 10 ml BID KING Administration Sodium Chloride 10 ml 06/25/21 08:17 Sodium Chloride 0.9% 10 Ml Flush Syringe IV PRN PRN LINE FLUSH Tramadol HCl 50 mg 06/25/21 08:17 06/26/21 15:00 Tramadol 50 Mg Tab PO 50 mg Q6H PRN Administration Pain, Moderate (4-6)
[2021-06-27] MEDS ORDERED: [UNRECOGNIZED DRUG - OTHER] PO SCH (10:00)
[2021-06-27] MEDS ORDERED: amLODIPine 5 MG TAB PO SCH (10:00)
[2021-06-27] MEDS ORDERED: NON-FORMULARY EACH (Losartan [Cozaar] 100 MG Tablet) PO SCH (10:00)
[2021-06-27] MEDS: hydrALAZINE 25 MG TAB PO SCH ×2 (10:46→22:01)
[2021-06-27] MEDS: amLODIPine 5 MG TAB PO SCH (10:47)
[2021-06-27] MEDS: LOSARTAN 50 MG TAB PO SCH (10:47)
[2021-06-27] MEDS: traMADol 50 MG TAB PO PRN ×2 (10:48→11:02)
[2021-06-27] MEDS: metFORMIN 850 MG TAB PO SCH (11:02)
[2021-06-27] MEDS: CHOLECALCIFEROL (VIT D3) 5,000 UNIT TAB PO SCH (11:31)
--- NOTE | 2021-06-27 12:16 | Progress Note ---
Assessment and Plan Echo reviewed - EF 55-60%, mild diastolic dysfunction. Treadmill stress test 06/27/2021-negative for signs of ischemia Continue amlodipine Initiate hydralazine 50 mg p.o. twice daily and metoprolol XL 25 mg p.o. daily Cardiac status otherwise stable. Will sign off Patient should follow with Dr. Garcia, [facility] crime specialist, 07/18/2020 at 12:30pm at our [place] location. Phone #[phone] Pt seen in conjunction with Dr. Veloz, who agrees with the assessment and plan of care. - Patient Problems (1) Chest pain Current Visit: Yes Status: Acute Qualifiers: Qualified Code(s): R07.9 - Chest pain, unspecified (2) Hypertensive emergency Current Visit: Yes Status: Acute (3) DM2 (diabetes mellitus, type 2) Current Visit: Yes Status: Chronic (4) HLD (hyperlipidemia) Current Visit: Yes Status: Chronic Qualifiers: Hyperlipidemia type: mixed hyperlipidemia Qualified Code(s): E78.2 - Mixed hyperlipidemia Subjective Date of service: 06/27/21 Principal diagnosis: Chest Pain Interval history: Patient for stress test this a.m. Sinus 90s to low 100s on monitor Objective Vital Signs Temp Pulse Resp BP Pulse Ox 06/27/21 11:18 98.0 F 91 H 18 154/80 98 06/27/21 10:47 99 H 06/27/21 10:46 99 H 06/27/21 03:48 98.4 F 92 H 16 162/84 98 06/26/21 23:32 100 06/26/21 23:12 98.5 F 103 H 12 167/92 95 06/26/21 19:32 98.5 F 92 H 16 159/79 100 06/26/21 16:03 98.3 F 85 18 141/68 100 06/26/21 15:00 86 100 - Physical Examination General: No Apparent Distress HEENT: Positive: EOMI, Normocephaly Neck: Positive: neck supple, trachea midline Cardiac: Positive: Reg Rate and Rhythm Lungs: Positive: Normal Breath Sounds Neuro: Positive: Grossly Intact Abdomen: Positive: Soft. Negative: Tender Skin: Negative: Rash Musculoskeletal: No Pain Extremities: Present: lower extr. pulses. Absent: edema - Imaging and Cardiology EKG: report reviewed, image reviewed Echo: report reviewed - Telemetry EKG Rhythm: Sinus Rhythm - EKG Sinus rhythms and dysrhythmias: sinus rhythm
[2021-06-27] MEDS ORDERED: METOPROLOL SUCCINATE XL 25 MG TAB PO SCH (14:00)
[2021-06-27] MEDS: ACETAMINOPHEN 325 MG TAB PO PRN (18:48)
[2021-06-28] MEDS: ACETAMINOPHEN 325 MG TAB PO PRN ×2 (00:42→12:45)
[2021-06-28] MEDS: INSULIN REGULAR, HUMAN 100 UNITS/1 ML SUB-Q SCH ×2 (03:00→09:45)
[2021-06-28] MEDS: HEPARIN 5,000 UNIT/1 ML VIAL SUB-Q SCH (07:03)
[2021-06-28] MEDS: amLODIPine 5 MG TAB PO SCH (10:41)
[2021-06-28] MEDS: hydrALAZINE 25 MG TAB PO SCH (10:41)
[2021-06-28] MEDS: metFORMIN 850 MG TAB PO SCH (10:41)
[2021-06-28] MEDS: LOSARTAN 50 MG TAB PO SCH (10:42)
[2021-06-28] MEDS: CHOLECALCIFEROL (VIT D3) 5,000 UNIT TAB PO SCH (10:42)
[2021-06-28] MEDS ORDERED: carvediloL 3.125 MG TAB PO SCH (11:00)
[2021-06-28] MEDS ORDERED: METOPROLOL SUCCINATE XL 25 MG TAB PO SCH (11:00)
--- NOTE | 2021-06-28 11:40 | Nuclear Medicine Report ---
APPROVED REPORT Exam: Nuclear Stress Test Indication: [facility] pain [facility] Ht: 5 ft 3 in Wt: 189 lbs BSA: 1.89 m2 HR: 95 bpmBP: 202/107 mmHgBMI: 33.47 Rhythm: NSR Stress Test Details Stress Test: Pharmacologic stress testing performed using 0.4 mg of regadenoson per 5 mL given IV over 10 seconds. Reason for pharmacologic stress test: physical limitation. HR Resting HR: 100 bpm Max HR Achieved: 130 bpm Max Heart Rate (APMHR): 169.407418 bpm Target HR (85% APMHR): 143.950125 bpm % of APMHR: 76.92 Recovery HR: 109 bpm HR response to stress: Normal HR response to stress BP Resting BP: 177/88 mmHg Max BP: 202/107 mmHg Recovery BP: 179/91 mmHg BP response to stress: Abnormal hypertensive response to stress. ECG Resting ECG: Sinus Tachycardia Stress ECG: Sinus Tachycardia Arrhythmia: None Recovery ECG: Sinus Tachycardia Recovery Arrhythmia: None Clinical Reason for Termination: Completed protocol Stress Symptoms: None NM EXAM: Myocardial Perfusion REST/STRESS Imaging Protocol: Rest Tc-99m/Stress Tc-99m 1 day Resting Data Rest SPECT myocardial perfusion imaging was performed in supine position 45 minutes following the intravenous injection of 10 mCi of Tc-99m Myoview. Time of rest injection: 0700 Date: 06/27/2021 Pharmacologic Stress Pharmacologic stress test was performed by injecting Regadenoson 0.4 mg IV push followed by the intravenous injection of 28 mCi of Tc-99m Myoview. Time of stress injection: 0945 Date: 06/27/2021 Gated Stress SPECT was performed 30 minutes after stress injection. Study Data TID = 1.11. Perfusion Nuclear Conclusion ECG Findings: negative for ischemia Clinical Findings: negative for ischemia Nuclear Findings: negative for ischemia Exercise Capacity: not assessed Left Ventricular Function: normal Normal study. No scintigraphic evidence for myocardial ischemia or scar. Normal left ventricular size and function with no regional wall motion abnormalities.
--- NOTE | 2021-06-28 12:12 | Progress Note ---
Assessment and Plan Echo reviewed - EF 55-60%, mild diastolic dysfunction. Treadmill stress test 06/27/2021-negative for signs of ischemia Continue amlodipine Continue hydralazine 50 mg p.o. twice daily Increased metoprolol XL 50 mg p.o. daily Cardiac status otherwise stable. Will sign off Patient should follow with Dr. Garcia, [facility] promotion specialist, 07/18/2020 at 12:30pm at our [place] location. Phone #[phone] Pt seen in conjunction with Dr. Veloz, who agrees with the assessment and plan of care. - Patient Problems (1) Chest pain Current Visit: Yes Status: Acute Qualifiers: Qualified Code(s): R07.9 - Chest pain, unspecified (2) Hypertensive emergency Current Visit: Yes Status: Acute (3) DM2 (diabetes mellitus, type 2) Current Visit: Yes Status: Chronic (4) HLD (hyperlipidemia) Current Visit: Yes Status: Chronic Qualifiers: Hyperlipidemia type: mixed hyperlipidemia Qualified Code(s): E78.2 - Mixed hyperlipidemia Subjective Date of service: 06/28/21 Principal diagnosis: Chest Pain Interval history: Patient lying in bed in no acute distress. Sinus 80s on monitor Objective Vital Signs Temp Pulse Resp BP BP Pulse Ox 06/28/21 08:25 100 06/28/21 07:37 98.6 F 94 H 18 170/89 98 06/28/21 04:14 98.0 F 99 H 18 160/85 100 06/28/21 00:31 98.0 F 103 H 18 165/83 99 06/27/21 23:00 92 H 06/27/21 22:01 69 143/62 06/27/21 22:00 18 100 06/27/21 20:00 98.6 F 69 16 143/69 06/27/21 15:51 98.0 F 18 133/69 - Physical Examination General: No Apparent Distress HEENT: Positive: EOMI, Normocephaly Neck: Positive: neck supple, trachea midline Cardiac: Positive: Reg Rate and Rhythm Lungs: Positive: Normal Breath Sounds Neuro: Positive: Grossly Intact Abdomen: Positive: Soft. Negative: Tender Skin: Negative: Rash Musculoskeletal: No Pain Extremities: Present: lower extr. pulses. Absent: edema - Imaging and Cardiology EKG: report reviewed, image reviewed Echo: report reviewed - Telemetry EKG Rhythm: Sinus Rhythm - EKG Sinus rhythms and dysrhythmias: sinus rhythm
--- NOTE | 2021-06-28 14:11 | Electrocardiograph Report ---
[facility] Test Date: 2021-06-25 Test Time: 06:31:41 Pat Name: KEITH ANDREA Department: Room: A467 1 Gender: F Cephalometric Analyst: MARCO ANTONIO : 1970 Requested By: ELADIA MAURER III Order Number: [id number] Reading MD: Stacia Del Real Measurements Intervals [place] Rate: 100 P: 61 ND: 168 QRS: 1 QRSD: 87 T: 80 QT: 368 QTc: 475 Interpretive Statements Sinus tachycardia Anterior infarct, old No previous ECG available for comparison Electronically Signed On 06-28-2021 14:11:37 EST by Stacia Del Real
--- NOTE | 2021-06-28 14:12 | Electrocardiograph Report ---
[facility] Test Date: 2021-06-25 Test Time: 09:17:43 Pat Name: KEITH ANDREA Department: Room: A467 1 Gender: F Clinical Coder: SHERIDAN : 1970 Requested By: EDEN DANIEL Order Number: [id number] Reading MD: Stacia Del Real Measurements Intervals [place] Rate: 98 P: 35 UT: 174 QRS: 20 QRSD: 92 T: 52 QT: 386 QTc: 492 Interpretive Statements Sinus rhythm Anterior infarct, old Compared to ECG 06/25/2021 06:31:41 No significant change Electronically Signed On 06-28-2021 14:12:46 EST by Stacia Del Real
--- NOTE | 2021-06-28 14:14 | Electrocardiograph Report ---
[facility] Test Date: 2021-06-25 Test Time: 13:23:28 Pat Name: KEITH ANDREA Department: Room: A467 1 Gender: F Supervisor Irrigation: SHERIDAN : 1970 Requested By: EDEN DANIEL Order Number: [id number] Reading MD: Stacia Del Real Measurements Intervals [place] Rate: 87 P: 29 AK: 171 QRS: 3 QRSD: 90 T: 65 QT: 402 QTc: 483 Interpretive Statements Sinus rhythm Consider old anterior infarct Compared to ECG 06/25/2021 09:17:43 No significant changes Electronically Signed On 06-28-2021 14:14:22 EST by Stacia Del Real
[2021-06-28 14:25] VITALS: BP 122/61
--- NOTE | 2021-06-28 14:26 | Discharge Summary ---
Providers - Providers Date of Admission: 06/25/21 05:48 Date of discharge: 06/28/21 Attending physician: ANTONETTE LYNN MD 06/25/21 Consult to Cardiac Rehabilitation [CONS] Routine Reason For Exam: Phase I 06/25/21 08:18 Consult to Physician [CONS] Routine Comment: Consulting Provider: TRESSA GONZALES Physician Instructions: Reason For Exam: cp [facility] Reason for admission: chest pain Condition: Stable Hospital course: History of present illness: 51-year-old female with past medical history of hyperlipidemia, diabetes and hypertension who presents to the emergency department with complaints of left- sided chest pain that is nonradiating and no associated shortness of breath. The patient reports the pain began approximately 2 days ago. Patient also complains of elevated blood pressure with 220/120 at home prior to leaving the house. Patient denies any nausea vomiting. No diaphoresis no cough or cold- like symptoms. No fever chills. Assessment and Plan #Chest pain (improved) #Hypertensive Emergency (resolved) #Hyperlipidemia #Diabetes mellitus type 2 with hyperglycemia #Acute kidney injury secondary to vasomotor nephropathy. #Obesity, BMI > 30 #Advance care planning Disease education conducted, care plan discussed, diagnoses discussed, prognosis discussed, patient is full code, patient acknowledges understanding and agree with care plan, +30 minutes. Hospital Course: 06/25/2021. Patient will be admitted to the chest pain pathway. We will follow-up serial EKGs and troponin levels. Initial EKG shows no ST-T wave changes and initial troponin negative. Consult cardiology for further evaluation. Check echocardiogram. Continue home medications for hypertension. Hold Glucophage and start sliding scale insulin and Accu-Cheks before every meal nightly. Patient has some mild renal insufficiency with likely acute kidney injury secondary to vasomotor nephropathy/dehydration. Normal saline IV fluid and follow-up BMP in the morning 06/26/2021. Creatinine has improved to near baseline. Troponins remain negative. Echocardiogram reveals left ventricular size and wall thickness is normal. LVEF is 55-60%. Mild diastolic dysfunction. Continue SSRI and Accu- Cheks. N.p.o. after midnight for stress test in a.m. 06/27/2021. Echocardiogram reveals EF 55-60% with mild diastolic dysfunction. Patient to undergo stress test this morning. BP still elevated this morning. We will increase amlodipine to 10 mg daily. Continue Cozaar 100 mg p.o. daily. Continue SSRI and Accu-Cheks. 06/28/2021: Patient is clear for discharge. NM stress negative. Patient will be discharge home with rx for amlodipine, hydralazine, metoprolol XL. Advised to follow up with Dr. Smith as an outpatient. Disposition: 01 HOME / SELF CARE / HOMELESS Final Discharge Diagnosis (Prints w/discharge instructions): Chest pain Time spent for discharge: 35 Core Measure Documentation - Palliative Care Palliative Care/ Comfort Measures: Not Applicable - Core Measures Any of the following diagnoses?: none Exam - Physical Exam Narrative exam: Physical Exam: VITAL SIGNS: Reviewed. GENERAL: The patient appears normally developed, Vital signs as documented. HEAD: No signs of head trauma. EYES: Pupils are equal. Extraocular motions intact. EARS: Hearing grossly intact. MOUTH: Oropharynx is normal. NECK: No adenopathy, no JVD. CHEST: Chest with clear breath sounds bilaterally. No wheezes, rales, or rhonchi. CARDIAC: Regular rate and rhythm. S1 and S2, without murmurs, gallops, or rubs. VASCULAR: No Edema. Peripheral pulses normal and equal in all extremities. ABDOMEN: Soft, non tender and non distended. No rebound or guarding, and no masses palpated. Bowel Sounds normal. MUSCULOSKELETAL: Good range of motion of all major joints. Extremities without clubbing, cyanosis or edema. NEUROLOGIC EXAM: Alert and oriented x 4. no focal sensory or strength deficits. PSYCHIATRIC: Mood normal. SKIN: detail exam as documented in skin assessment - Constitutional Vitals: Temp Pulse Resp BP Pulse Ox 98.6 F 94 H 18 170/89 100 06/28/21 07:37 06/28/21 07:37 06/28/21 07:37 06/28/21 07:37 06/28/21 08:25 Plan Plan of Treatment: Patient should follow with Dr. Smith, [facility] diversity specialist, 07/18/2020 at 12:30pm at our [place] location. Phone #[phone] Follow up with: SUNITHA LEONMETLAKATLA MD DAVIE [Primary Care Provider] - 7 Days LIBRA SMITH MD [Staff Physician] - 7 Days
== END 2021-06-28 14:54 | disposition home or self-care (01) ==
LOC: ED 03:06 → INTOOBSV 05:48 → 4A 05:48 → OBSVTOIN 05:48
PROVIDERS: ADMIT Internal Medicine Geriatric Medicine; ATTEND Internal Medicine
DX: R07.89 Other chest pain (principal); I16.1 Hypertensive emergency; I10 Essential (primary) hypertension; N17.9 Acute kidney failure, unspecified; E11.9 Type 2 diabetes mellitus without complications; E78.2 Mixed hyperlipidemia; E78.5 Hyperlipidemia, unspecified; E66.9 Obesity, unspecified; N17.0 Acute kidney failure with tubular necrosis; Z79.84 Long term (current) use of oral hypoglycemic drugs; Z98.891 History of uterine scar from previous surgery; Z79.4 Long term (current) use of insulin; Z68.32 Body mass index [BMI] 32.0-32.9, adult
CPT/HCPCS: 36415; 71045; 78452; 80048; 80053; 82962; 84484; 85025; 85379; 85610; 85730; 93005; 93017; 93306; 96360; 96361; 96372; 99291; A9502; G0378; J1644; J2785; J7030; Q0162; Q9967; J1815